=== PATIENT | female | born 1960 | race American Indian/Alaskan Native ===

== ENCOUNTER 2017-02-05 07:32 | Emergency (ER) | payer MEDICAID, OTHER ==
[2017-02-05 07:33] VITALS: BMI 33.4
[2017-02-05 08:27] LABS: HEMOGLOBIN 13.5 gm/dL (12.0-16.0); MEAN CELL VOLUME 79.8 fL (80.0-105.0); MEAN CORPUSCULAR HEMOGLOBIN 26.7 pg (25.0-35.0); MEAN CORPUSCULAR HGB CONC 33.4 g/dl (31.0-37.0); MEAN PLATELET VOLUME 11.3 fl (7.0-11.0); PLATELET COUNT 193 10^3/uL (120.0-450.0); RBC 5.06 10^6/uL (3.5-6.1); RED CELL DISTRIBUTION WIDTH 15.3 % (11.5-14.5); WHITE BLOOD COUNT 8.1 10^3/ul (4.5-11.0)
[2017-02-05 08:38] LABS: ALB/GLOB RATIO 1.2 (1.1-1.8); ALBUMIN 3.9 g/dL (3.0-4.8); ALT/SGPT 13 U/L (7-56); AST/SGOT 24 U/L (15-39); BLOOD UREA NITROGEN 15 mg/dL (7-21); CALCIUM 9.7 mg/dL (8.4-10.5); GFR AFRICAN-AMERICAN > 60; GFR NON-AFRICAN AMERICAN > 60
[2017-02-05 08:40] LABS: EOSINOPHIL 2 % (0.0-3.0); LYMPHOCYTE 64 % (22.0-35.0); MONOCYTE 5 % (1.0-6.0); NEUTROPHIL 29 % (50.0-70.0)
[2017-02-05 08:41] LABS: GIANT PLATELETS PRESENT; LARGE PLATELETS PRESENT; PLATELET ESTIMATE NORMAL (NORMAL)
[2017-02-05 08:49] LABS: TROPONIN I 0.02 ng/mL
--- NOTE | 2017-02-05 09:55 | ED PDOC ---
Arrival/HPI - General Chief Complaint: Headache Time Seen by Provider: 02/05/17 07:39 Historian: Patient - History of Present Illness Narrative History of Present Illness (Text): 02/05/17 09:00 A 56 year old female, whose past medical history includes hypertension, presents to the emergency department complaining of a headache that started this morning when she woke up. She also reports similar symptoms about two months ago. Reports PMD increased Losartan medication from 25 mg to 50 mg. Patient reports blood pressure is usually under control. Notes some dizziness and nausea but denies any appetite changes, chest pain, shortness of breath or any other complaints at this time. PMD: Dr. Gutierrez Symptom Onset: Sudden Symptom Course: Unchanged Activities at Onset: Rest Context: Home Past Medical History - Provider Review Nursing Documentation Reviewed: Yes - Infectious Disease Hx of Infectious Diseases: None - Tetanus Immunization Tetanus Immunization: Unknown - Reproductive Menopause: Yes - Cardiac Hx Cardiac Disorders: Yes Hx Hypertension: Yes - Pulmonary Hx Respiratory Disorders: No - Neurological Hx Neurological Disorder: No - HEENT Hx HEENT Disorder: Yes Other/Comment: HX: THYROID NODULE - Renal Hx Renal Disorder: No - Endocrine/Metabolic Hx Endocrine Disorders: Yes Hx Diabetes Mellitus Type 2: Yes (SEE TEXT) Other/Comment: "I'M NOT REALLY DIABETIC THEY GIVE ME THE MEDICINE BECAUSE OF A FAMILY HX. OF DIABETES." - Hematological/Oncological Hx Blood Disorders: No - Integumentary Hx Dermatological Disorder: No - Musculoskeletal/Rheumatological Hx Musculoskeletal Disorders: No - Gastrointestinal Hx Gastrointestinal Disorders: No - Genitourinary/Gynecological Hx Genitourinary Disorders: Yes Other/Comment: HX: ECTOPIC - Psychiatric Hx Psychophysiologic Disorder: No Hx Depression: No Hx Substance Use: No - Surgical History Hx Tubal Ligation: Yes Other/Comment: HX: SURGERY FOR ETOPIC PREGANCY - Anesthesia Hx Anesthesia: Yes Hx Anesthesia Reactions: No Hx Malignant Hyperthermia: No - Suicidal Assessment Feels Threatened In Home Enviroment: No Family/Social History - Physician Review Nursing Documentation Reviewed: Yes Family/Social History: No Known Family HX Smoking Status: Light Smoker < 10 Cigarettes Daily Hx Alcohol Use: Yes Frequency of alcohol use: Socially Hx Substance Use: No Hx Substance Use Treatment: No Allergies/Home Meds Allergies/Adverse Reactions: Allergies No Known Allergies Allergy (Verified 02/05/17 07:46) Home Medications: Home Meds Medication Instructions Recorded Confirmed Losartan [Cozaar] 25 mg PO DAILY 10/27/16 02/05/17 Simvastatin 20 mg PO DAILY 10/27/16 02/05/17 metFORMIN [glucOPHAGE] 500 mg PO DAILY 10/27/16 02/05/17 Review of Systems - Review of Systems Constitutional: Fatigue. absent: Fevers Eyes: Other (no loss of vision). absent: Photophobia, Eye Pain ENT: absent: Hearing Changes, Voice Changes Respiratory: absent: SOB Cardiovascular: absent: Chest Pain Gastrointestinal: Nausea. absent: Appetite Changes Genitourinary Female: absent: Dysuria Musculoskeletal: absent: Back Pain Skin: absent: Rash Neurological: Headache, Dizziness. absent: Focal Weakness, Gait Changes, Facial Droop Endocrine: absent: Polyuria Hemo/Lymphatic: absent: Easy Bleeding Physical Exam - Physical Exam Narrative Physical Exam (Text): 02/05/17 09:51 Head: Atraumatic. Normocephalic. Eyes: PERRL. EOMI. Conjunctivae are not pale. Visual acuity and visual vargas grossly intact. No pain with eye movements. ENT: Mucous membranes are moist and intact. Oropharynx is clear and symmetric. No facial edema. Neck: Supple. Full ROM. No JVD. No lymphadenopathy. Cardiovascular: Regular rate. Regular rhythm. Systolic murmur. Distal pulses intact. Pulmonary/Chest: No evidence of respiratory distress. Clear to auscultation bilaterally. No wheezing, rales or rhonchi. Abdominal: Soft and non-distended. There is no tenderness. No rebound, guarding, or rigidity. No organomegaly. Good bowel sounds. Back: No CVA tenderness. Extremities: Mild symmetric bilateral nonpitting edema. No cyanosis. No clubbing. Full range of motion in all extremities. No calf tenderness. No muscle edema or erythema. Skin: Skin is warm and dry. No petechiae. No purpura. Neurological: Alert, awake, and oriented to person, place, time, and situation. Normal speech. No facial droop. Steady gait. Motor and sensory intact. Psychiatric: Good eye contact. Normal interaction, affect, and behavior. Vital Signs Reviewed: Yes Vital Signs Temp Pulse Resp BP Pulse Ox 02/05/17 12:01 62 18 120/79 97 02/05/17 11:00 98.5 F 66 18 123/77 96 02/05/17 08:58 126/67 02/05/17 08:27 158/94 H 02/05/17 08:19 95 H 190/105 H 02/05/17 07:41 97.8 F 93 H 19 190/105 H 97 Temperature: Afebrile Blood Pressure: Hypertensive Pulse: Regular Respiratory Rate: Normal Appearance: Positive for: Well-Appearing, Non-Toxic, Comfortable Pain Distress: None Mental Status: Positive for: Alert and Oriented X 3 Medical Decision Making ED Course and Treatment: 02/05/17 09:00 Impression: A 56 year old female with headache. Differential Diagnosis included but are not limited to: uncontrolled hypertension vs. migraine headache Plan: -- EKG -- chest xray -- CT head -- labs -- Clonidine, Tylenol -- Reassess and disposition Prior Visits: Notes and results from previous visits were reviewed. Patient was last seen in the emergency department on 10/04/13 for evaluation of right eye redness. Progress Notes: Patient is a known hypertensive, takes Losartan. Reports compliance with medication. Denies any change in recent medication. Denies recent illnesses. Reports she ate Lasagna last night. States that in the past when her blood pressure is not uncer control she experience similar headaches. Not sudden onset or worst in life. She denies trauma. Denies nausea or vomiting. No focal neuro findings on exam. She denies any exertional symptoms, denies any chest pain or shortness of breath. Denies abdominal pain. Denies back pain. EKG reviewed, no associated chest pain or shortness of breath or lightheadedness. No prior for comparison but no symptoms to suggest acute cardiac pathology at this time. Blood pressure medication reviewed, clonidine ordered. 02/05/17 09:23 Patient's blood pressure is improved to 135/85 after taking Clonidine. Headache improved, but persists. Will order CT of head. 02/05/17 10:03 CT HEAD WITHOUT CONTRAST Creator : Say Banuelos MD IMPRESSION: Normal CT of the Head. No intracranial mass, hemorrhage or evidence of acute infarct. 02/05/17 10:13 chest xray: Creator : Say Banuelos MD IMPRESSION: No active disease. On re-exam, patient awake alert with resolution of headache after iv fluids and toradol. I reviewed CPK with patient. She was given iv fluids. Denies prolonged immobilization or strenuous activity or recent muscle pain or injury. She denies chest pain or sob. I have advised patient close follow-up of symptoms, although on re-exam BP improved, headache resolved, no chest pain or sob. I discussed case with Dr. Lizzy Gutierrez, her PMD, and follow-up for re- evaluation of BP and symptoms scheduled for tomorrow. - Lab Interpretations Lab Results: 02/05/17 08:21 02/05/17 08:21 Lab Results 02/05/17 08:21: Sodium 141, Potassium 3.6, Chloride 107, Carbon Dioxide 25, Anion Gap 13, BUN 15, Creatinine 0.8, Est GFR ( Amer) > 60, Est GFR (Non- Af Amer) > 60, Random Glucose 102, Calcium 9.7, Total Bilirubin 0.4, AST 24, ALT 13, Alkaline Phosphatase 67, Lactate Dehydrogenase 458, Total Creatine Kinase 508 H, CK-MB (CK-2) 2.0, CK-MB (CK-2) % Cancelled, Troponin I 0.02, Total Protein 7.1, Albumin 3.9, Globulin 3.2, Albumin/Globulin Ratio 1.2 02/05/17 08:21: WBC 8.1, RBC 5.06, Hgb 13.5, Hct 40.4, MCV 79.8 L, MCH 26.7, MCHC 33.4, RDW 15.3 H, Plt Count 193, MPV 11.3 H, Neutrophils % (Manual) 29 L, Lymphocytes % (Manual) 64 H, Monocytes % (Manual) 5, Eosinophils % (Manual) 2, Platelet Evaluation Normal, Large Platelets Present, Giant Platelets Present I have reviewed the lab results: Yes - RAD Interpretation Radiology Orders: 02/05/17 08:09 CHEST PORTABLE [RAD] Stat 02/05/17 09:23 HEAD W/O CONTRAST [CT] Stat - EKG Interpretation Interpreted by ED Physician: Yes Type: 12 lead EKG - Medication Orders Current Medication Orders: Discontinued Medications Acetaminophen (Tylenol 325mg Tab) 650 mg PO ONCE STA Stop: 02/05/17 08:11 Last Admin: 02/05/17 08:18 Dose: 650 mg Clonidine HCl (Catapres) 0.1 mg PO ONCE STA Stop: 02/05/17 08:09 Last Admin: 02/05/17 08:19 Dose: 0.1 mg Sodium Chloride (Sodium Chloride 0.9%) 500 mls @ 1,000 mls/hr IV .Q30M STA Stop: 02/05/17 11:17 Last Admin: 02/05/17 10:54 Dose: 1,000 mls/hr Ketorolac Tromethamine (Toradol) 30 mg IVP ONCE ONE Stop: 02/05/17 10:49 Last Admin: 02/05/17 10:55 Dose: 30 mg - Scribe Statement The provider has reviewed the documentation as recorded by the Yudith Izaguirre Provider Scribe Attestation: All medical record entries made by the Yudith were at my direction and personally dictated by me. I have reviewed the chart and agree that the record accurately reflects my personal performance of the history, physical exam, medical decision making, and the department course for this patient. I have also personally directed, reviewed, and agree with the discharge instructions and disposition. Disposition/Present on Arrival - Present on Arrival Any Indicators Present on Arrival: No History of DVT/PE: No History of Uncontrolled Diabetes: No Urinary Catheter: No History of Decub. Ulcer: No History Surgical Site Infection Following: None - Disposition Have Diagnosis and Disposition been Completed?: Yes Diagnosis: Headache, Hypertension Disposition: HOME/ ROUTINE Disposition Time: 11:50 Patient Plan: Discharge Condition: GOOD Discharge Instructions (ExitCare): Acute Headache (ED), Hypertension (ED) Additional Instructions: Take your blood pressure medication as directed. For ANY chest pain or shortness of breath, any return of headache, any visual symptoms, any unsteadiness, any nausea or vomiting, any numbness or weakness, any persistent or worsening of symptoms, get rechecked. Follow-up with Dr. Gutierrez tomorrow for re-evaluation. Forms: [employer] (Serbian)
--- NOTE | 2017-02-05 10:00 | CT ---
PROCEDURE: CT HEAD WITHOUT CONTRAST. HISTORY: headache, hypertension COMPARISON: None available. TECHNIQUE: Axial computed tomography images were obtained through the head/brain without intravenous contrast. Radiation dose: Total exam DLP = 725.84 mGy-cm. This CT exam was performed using one or more of the following dose reduction techniques: Automated exposure control, adjustment of the mA and/or kV according to patient size, and/or use of iterative reconstruction technique. FINDINGS: HEMORRHAGE: No intracranial hemorrhage. BRAIN: No mass effect or edema. No atrophy or chronic microvascular ischemic changes. VENTRICLES: Unremarkable. No hydrocephalus. CALVARIUM: Unremarkable. PARANASAL SINUSES: Unremarkable as visualized. No significant inflammatory changes. MASTOID AIR CELLS: Unremarkable as visualized. No inflammatory changes. OTHER FINDINGS: None. IMPRESSION: Normal CT of the Head. No intracranial mass, hemorrhage or evidence of acute infarct.
--- NOTE | 2017-02-05 10:10 | RAD ---
HISTORY: hypertension COMPARISON: No prior. FINDINGS: LUNGS: No active pulmonary disease. PLEURA: No significant pleural effusion identified, no pneumothorax apparent. CARDIOVASCULAR: Normal. OSSEOUS STRUCTURES: No significant abnormalities. VISUALIZED UPPER ABDOMEN: Normal. OTHER FINDINGS: None. IMPRESSION: No active disease.
[2017-02-05] MEDS ORDERED: Sodium Chloride 0.9% 500 ML IV STA (10:48)
[2017-02-05 11:22] VITALS: RESP 18; TEMP 98.5
[2017-02-05 12:02] VITALS: BP 120/79; PULSE 62; O2SAT 97
--- NOTE | 2017-02-05 22:49 | CARD ---
APPROVED REPORT EKG Measurement Heart [id number] DC 150P50 [id number] <Conclusion> Normal sinus rhythm with sinus arrhythmia Incomplete right bundle branch block Nonspecific T wave abnormality Prolonged QT Abnormal ECG
== END 2017-02-05 12:02 | disposition home or self-care (01) ==
LOC: ED 07:32
DX: I10 Essential (primary) hypertension (principal); R51 Headache
CPT/HCPCS: 70450; 71010; 80053; 82550; 82553; 83615; 84484; 85025; 93005; 96374; 99285; J1885; J7040

== ENCOUNTER 2018-06-08 07:10 | Emergency (ER) | payer MEDICAID, OTHER ==
[2018-06-08 07:11] VITALS: BMI 33.4
[2018-06-08 07:22] VITALS: BP 142/89; PULSE 75; RESP 18; TEMP 98.2; O2SAT 98
--- NOTE | 2018-06-08 07:41 | ED PDOC ---
Arrival/HPI - General Chief Complaint: Abnormal Skin Integrity Time Seen by Provider: 06/08/18 07:12 Historian: Patient - History of Present Illness Narrative History of Present Illness (Text): 06/08/18 07:35 58 y/o F, with past medical history of hypertension, presents to the Emergency department for evaluation of painful rash to her back since 1 week. Patient informs localized rash to the right side of her back, which progressively worsened associated with pain this morning prompting her to present to the ED for medical evaluation. Patient reports application of ointment to the area with no improvement to symptoms. Additionally, patient informs bilateral ear discomfort, left greater than right, stating decreased hearing since couple days. Patient states she has an appointment to see an ENT this week but requests to be evaluated now. Patient denies any other associated somatic complaints. Patient denies any fever, chills, nausea, vomiting, diarrhea, abdominal pain, chest pain, shortness of breath, headache, dizziness or any other complaints. Time/Duration: 1 week Symptom Onset: Gradual Symptom Course: Unchanged Quality: Aching Activities at Onset: Light Context: Home Past Medical History - Provider Review Nursing Documentation Reviewed: Yes - Travel History Have you recently traveled outside [place] w/in the past 3 mons?: No - Infectious Disease Hx of Infectious Diseases: None - Tetanus Immunization Tetanus Immunization: Unknown - Reproductive Menopause: Yes - Cardiac Hx Cardiac Disorders: Yes Hx Hypertension: Yes - Pulmonary Hx Respiratory Disorders: No - Neurological Hx Neurological Disorder: No - HEENT Hx HEENT Disorder: Yes Other/Comment: HX: THYROID NODULE - Renal Hx Renal Disorder: No - Endocrine/Metabolic Hx Endocrine Disorders: Yes Hx Diabetes Mellitus Type 2: Yes (SEE TEXT) Other/Comment: "I'M NOT REALLY DIABETIC THEY GIVE ME THE MEDICINE BECAUSE OF A FAMILY HX. OF DIABETES." - Hematological/Oncological Hx Blood Disorders: No - Integumentary Hx Dermatological Disorder: No - Musculoskeletal/Rheumatological Hx Musculoskeletal Disorders: No - Gastrointestinal Hx Gastrointestinal Disorders: No - Genitourinary/Gynecological Hx Genitourinary Disorders: Yes Other/Comment: HX: ECTOPIC - Psychiatric Hx Psychophysiologic Disorder: No Hx Depression: No Hx Substance Use: No - Surgical History Hx Tubal Ligation: Yes Other/Comment: HX: SURGERY FOR ETOPIC PREGANCY - Anesthesia Hx Anesthesia: Yes Hx Anesthesia Reactions: No Hx Malignant Hyperthermia: No - Suicidal Assessment Feels Threatened In Home Enviroment: No Family/Social History - Physician Review Nursing Documentation Reviewed: Yes Family/Social History: Unknown Family HX Smoking Status: Light Smoker < 10 Cigarettes Daily Hx Alcohol Use: Yes Frequency of alcohol use: Socially Hx Substance Use: No Hx Substance Use Treatment: No Allergies/Home Meds Allergies/Adverse Reactions: Allergies No Known Allergies Allergy (Verified 06/08/18 07:23) Home Medications: Home Meds Medication Instructions Recorded Confirmed RX: Simvastatin 40 mg PO DAILY 10/27/16 06/08/18 metFORMIN [glucOPHAGE] 500 mg PO BID 10/27/16 06/08/18 RX: Ibuprofen [Motrin Tab] 800 mg PO BID PRN 06/08/18 06/08/18 RX: amLODIPine [Norvasc] 10 mg PO DAILY 06/08/18 06/08/18 Review of Systems - Physician Review All systems were reviewed & negative as marked: Yes - Review of Systems Constitutional: absent: Fevers Eyes: absent: Vision Changes ENT: Other (Bilateral ear discomfort) Respiratory: absent: SOB, Cough Cardiovascular: absent: Chest Pain Gastrointestinal: absent: Abdominal Pain, Diarrhea, Nausea, Vomiting Musculoskeletal: absent: Neck Pain Skin: Rash Neurological: absent: Headache, Dizziness Physical Exam Vital Signs Reviewed: Yes Vital Signs Temp Pulse Resp BP Pulse Ox 06/08/18 07:20 98.2 F 75 18 142/89 98 Temperature: Afebrile Blood Pressure: Normal Pulse: Regular Respiratory Rate: Normal Appearance: Positive for: Well-Appearing, Non-Toxic, Comfortable Pain Distress: None Mental Status: Positive for: Alert and Oriented X 3 - Systems Exam Head: Present: Atraumatic, Normocephalic Pupils: Present: PERRL Extroacular Muscles: Present: EOMI Conjunctiva: Present: Normal Ears: Present: Other (cerumen impaction noted bilaterally, unable to visualize TM) Respiratory/Chest: Present: Clear to Auscultation, Good Air Exchange. No: Respiratory Distress, Accessory Muscle Use Cardiovascular: Present: Regular Rate and Rhythm, Normal S1, S2. No: Murmurs Abdomen: No: Tenderness, Distention, Peritoneal Signs Back: Present: Other (Vesicular rash noted to right side along the T6 dermatome, tender to touch. ) Upper Extremity: Present: Normal Inspection. No: Cyanosis, Edema Lower Extremity: Present: Normal Inspection. No: Edema Neurological: Present: GCS=15, CN II-XII Intact, Speech Normal Skin: Present: Warm, Dry, Rashes (Vesicular rash noted to right side along the T7 dermatome, tender to touch.) Psychiatric: Present: Alert, Oriented x 3, Normal Insight, Normal Concentration Medical Decision Making ED Course and Treatment: 06/08/18 07:44 Impression: 58 year old female presents to the Emergency department for evaluation of pain ful rash to her back. Differential Diagnosis Included But Are Not limited to: Shingles Plan: -- Zovirax -- Reassess and disposition Prior Visits: Notes and results from previous visits were reviewed. Progress Notes: 06/08/18 07:55 Patient educated on nature of shingles and importance of treatment. She demonstrates understanding and will follow up with her PCP. Scripts provided. She is stable for discharge. - Scribe Statement The provider has reviewed the documentation as recorded by the Scribe Tiny Meyer. All medical record entries made by the Scribe were at my direction and personally dictated by me. I have reviewed the chart and agree that the record accurately reflects my personal performance of the history, physical exam, medical decision making, and the department course for this patient. I have also personally directed, reviewed, and agree with the discharge instructions and disposition. Disposition/Present on Arrival - Present on Arrival Any Indicators Present on Arrival: No History of DVT/PE: No History of Uncontrolled Diabetes: No Urinary Catheter: No History of Decub. Ulcer: No History Surgical Site Infection Following: None - Disposition Have Diagnosis and Disposition been Completed?: Yes Diagnosis: Shingles rash Disposition: HOME/ ROUTINE Disposition Time: 07:30 Patient Plan: Discharge Condition: STABLE Discharge Instructions (ExitCare): Shingles (ED) Print Language: GEORGIAN Additional Instructions: All medical record entries made by the Scribe were at my direction and personally dictated by me. I have reviewed the chart and agree that the record accurately reflects my personal performance of the history, physical exam, medical decision making, and the department course for this patient. I have also personally directed, reviewed, and agree with the discharge instructions and disposition Please take medication as prescribed. Please follow up with your PCP in 3-5 days. Please take Motrin for pain control every 6hrs with food for pain Prescriptions: RX: Acyclovir 800 mg PO 5XD 10 Days #50 tablet Referrals: [facility] [place] [Outside] - Follow up with primary Tatum Lainez MD [Medical Doctor] - Follow up with primary Forms: [employer] (Romanian)
== END 2018-06-08 07:55 | disposition home or self-care (01) ==
LOC: ED 07:10
DX: B02.9 Zoster without complications (principal)